=== PATIENT | male | born 1960 | race Caucasian/White ===

== ENCOUNTER → 2016-11-13 | Outpatient (CLI) | payer OTHER ==
[~2016-11-13] MED LIST: MULT-506 PO; PRAV20TA PO; PRLSR20 PO; VALA1TAB2 PO; ZOLP10TA PO
[2016-11-13 11:05] LABS: BASO % 0.4 %; BASO ABS # 0.02 K/uL (0-0.2); COMPLETE YES; EOS % 6.2 %; HEMATOCRIT 41.7 % (42-52); IG% 0.4 %; LYMPH % 48.6 %; LYMPH ABS # 2.76 K/uL (1.2-3.4); MEAN CELL VOLUME 88.9 fL (80-100); MEAN CORPUSCULAR HEMOGLOBIN 29.9 pg (25-34); MEAN CORPUSCULAR HGB CONC 33.6 g/dl (32-36); MEAN PLATELET VOLUME 10.3 fL (7.4-10.4); MONO % 9.5 %; NEUT % 34.9 %; PLATELET COUNT 238 K/uL (130-400); RED BLOOD COUNT 4.69 M/uL (4.7-6.1); WHITE BLOOD COUNT 5.68 K/uL (4.8-10.8)
[2016-11-13 11:34] LABS: BLOOD UREA NITROGEN 12 mg/dl (7-18); CALCIUM 8.6 mg/dl (8.5-10.1); CARBON DIOXIDE 27 mmol/L (21-32); CHLORIDE 106 mmol/L (98-107); GLUCOSE 94 mg/dl (70-99); POTASSIUM 3.9 mmol/L (3.5-5.1); SODIUM 142 mmol/L (136-145)
[2016-11-13 11:39] LABS: CHOLESTEROL 193 mg/dl (0-200); HDL CHOLESTEROL 65 mg/dl; LDL CHOLESTEROL CALCULATED 109 mg/dl; PROSTATE SPECIFIC ANTIGEN 0.709 ng/ml (0.000-4.000); TRIGLYCERIDES 96 mg/dl (0-150); VERY LOW DENSITY LIPOPROT CALC 19 mg/dl
[2016-11-13 11:53] LABS: ESTIMATED AVERAGE GLUCOSE 114 mg/dl; HA1C FLAG Normal (Normal)
== END | disposition home or self-care (01) ==
LOC: C.LABBC 08:48
PROVIDERS: ATTEND Internal Medicine
DX: E78.5 Hyperlipidemia, unspecified (principal); K20.0 Eosinophilic esophagitis; R73.9 Hyperglycemia, unspecified; Z12.5 Encounter for screening for malignant neoplasm of prostate